=== PATIENT | female | born 1985 | race Two or more races ===

== ENCOUNTER 2022-12-24 10:42 | Emergency (ER) | payer OTHER ==
[~2022-12-24] VITALS: Ht 160 cm; Wt 56.7 kg
[~2022-12-24 10:42] MED LIST: IBUPROFEN800 MG PO; ORPH100T PO; PROTONIX40 MG PO
== END 2022-12-24 12:56 | disposition home or self-care (01) ==
LOC: ER 10:42
DX: R10.32 Left lower quadrant pain (principal)

== ENCOUNTER 2023-11-04 09:14 | Emergency (ER) | payer OTHER ==
[~2023-11-04] VITALS: Ht 152.4 cm; Wt 59.0 kg
[2023-11-04] MEDS ORDERED: 0.9 % SODIUM CHLORIDE 1,000 ML IV SCH (09:29)
[2023-11-04 10:20] LABS: HEMATOCRIT 39.4 % (36.0-45.00); HEMOGLOBIN 13.6 g/dL (12.0-15.00); MEAN CELL VOLUME 91.4 fL (80.00-100.00); MEAN CORPUSCULAR HEMOGLOBIN 31.5 pg (27.00-32.0); MEAN CORPUSCULAR HGB CONC 34.4 g/dl (32.0-36.0); PLATELET COUNT 264 K/uL (150-450); RED BLOOD COUNT 4.31 M/uL (4.00-6.00); RED CELL DISTRIBUTION WIDTH 12.5 % (11.5-14.5)
[2023-11-04 11:01] LABS: CREATININE SERUM 0.96 mg/dL (0.55-1.02); GFR 64.37; POTASSIUM 3.98 mEq/L (3.5-5.1)
[2023-11-04 11:06] LABS: URINE APPEARANCE Cloudy; URINE BILIRRUBIN Negative (NEGATIVE); URINE BLOOD Negative; URINE COLOR Yellow; URINE GLUCOSE Negative (NEGATIVE); URINE LEUKOCYTE Small; URINE NITRATE Negative; URINE PROTEIN Negative (NEGATIVE); URINE UROBILINOGEN 0.2 E.U./dl
[2023-11-04 11:10] LABS: CALCIUM 9.4 mg/dL (8.5-10.1)
[2023-11-04 11:12] LABS: URINE EPITHELIAL CELLS 51.6 uL (0.0-38.8); URINE RBC 2.8 uL (0.0-20.8); URINE WBC 134.8 uL (0.0-23.2)
[2023-11-04 11:31] LABS: URINE BACTERIA > 9821.5 uL (0.0-1933)
== END 2023-11-04 15:53 | disposition home or self-care (01) ==
LOC: ER 09:14
PROVIDERS: Emergency Medicine
DX: R10.9 Unspecified abdominal pain (principal)
CPT/HCPCS: 36415; 74177; 96365; 96366; 99284; J7030; Q9965

== ENCOUNTER 2024-01-05 05:30 | Day surgery (SDC) | payer OTHER ==
[2023-12-29 12:47] LABS: HEMATOCRIT 38.5 % (36.0-45.00); HEMOGLOBIN 13.6 g/dL (12.0-15.00); MEAN CELL VOLUME 92.4 fL (80.00-100.00); MEAN CORPUSCULAR HEMOGLOBIN 32.6 pg (27.00-32.0); MEAN CORPUSCULAR HGB CONC 35.3 g/dl (32.0-36.0); PLATELET COUNT 249 K/uL (150-450); RED BLOOD COUNT 4.17 M/uL (4.00-6.00); RED CELL DISTRIBUTION WIDTH 12.7 % (11.5-14.5)
[2023-12-29 13:08] LABS: INR 0.94; PARTIAL THROMBOPLASTIN TIME 25.9 SECONDS (22.0-34.0); PROTHROMBIN TIME 9.9 SECONDS (9.0-11.5)
[2023-12-29 13:31] LABS: ALBUMIN 4.4 gm/dL (3.4-5.0); BILIRUBIN TOTAL 0.85 mg/dL (0.3-1.2); CALCIUM 9.5 mg/dL (8.5-10.1); CREATININE SERUM 0.69 mg/dL (0.55-1.02); GFR 94.23; POTASSIUM 4.36 mEq/L (3.5-5.1); TOTAL PROTEIN 7.4 gm/dL (6.4-8.2)
[~2024-01-05] VITALS: Ht 160 cm; Wt 61.2 kg
[2024-01-05] MEDS ORDERED: BUPIVACAINE HCL/Mpf 0.5% 10ML VIAL ONE (07:27)
[2024-01-05] MEDS ORDERED: POVIDONE-IODINE 118 ML BOTT TOP ONE (07:28)
[2024-01-05] MEDS ORDERED: MORPHINE SULFATE 4 MG/ML VIAL IV PRN (12:45)
[2024-01-05] MEDS ORDERED: PROMETHAZINE HCL 50 MG/ML AMPUL IM ONE ×3 (12:45→13:53)
== END 2024-01-06 13:40 | disposition home or self-care (01) ==
LOC: CIR.AMB 05:30
PROVIDERS: ATTEND Obstetrics & Gynecology Maternal & Fetal Medicine
DX: N84.0 Polyp of corpus uteri (principal); Z64.1 Problems related to multiparity

== ENCOUNTER 2024-10-28 12:03 | Emergency (ER) | payer OTHER ==
[~2024-10-28] VITALS: Ht 160 cm; Wt 65.8 kg
[2024-10-28] MEDS ORDERED: KETOROLAC TROMETHAMINE 30 MG VIAL IM ONE (15:45)
[2024-10-28] MEDS ORDERED: KETOROLAC TROMETHAMINE 30 MG VIAL ONE (16:17)
[2024-10-28] MEDS ORDERED: NORFLEX100MG PO (16:59)
[2024-10-28] MEDS ORDERED: DICLOFENAC SODI50 MG PO (16:59)
== END 2024-10-28 17:41 ==
LOC: ER 12:04
DX: S80.11XA Contusion of right lower leg, initial encounter (principal); W01.0XXA Fall on same level from slipping, tripping and stumbling without subsequent striking against object, initial encounter; Y93.89 Activity, other specified; Y92.89 Other specified places as the place of occurrence of the external cause; S80.811A Abrasion, right lower leg, initial encounter; M54.50 Low back pain, unspecified
CPT/HCPCS: 72100; 73590; 96372; 99283; J1885

== ENCOUNTER 2024-12-26 10:53 | Emergency (ER) | payer OTHER ==
[~2024-12-26] VITALS: Ht 160 cm; Wt 61.2 kg
[~2024-12-26 10:53] MED LIST changes: +DICLOFENAC SODI50 MG PO; +NORFLEX100MG PO
[2024-12-26] MEDS ORDERED: BACLOFEN10 MG PO (13:22)
[2024-12-26] MEDS ORDERED: DICLOFENAC SODI75 MG PO (13:22)
[2024-12-26] MEDS ORDERED: ORPHENADRINE CITRATE 30 MG/ML AMPUL ONE (13:25)
[2024-12-26] MEDS ORDERED: KETOROLAC TROMETHAMINE 60 MG VIAL IM ONE ×2 (13:26→13:30)
[2024-12-26] MEDS ORDERED: DEXAMETHASONE SODIUM PHOSPHATE 4 MG/ML VIAL ONE (13:26)
[2024-12-26] MEDS ORDERED: ORPHENADRINE CITRATE 30 MG/ML AMPUL IM ONE (13:30)
[2024-12-26] MEDS ORDERED: DEXAMETHASONE SODIUM PHOSPHATE 4 MG/ML VIAL IM ONE (13:30)
== END 2024-12-26 15:11 | disposition home or self-care (01) ==
LOC: ER 10:53
DX: M54.50 Low back pain, unspecified (principal)
CPT/HCPCS: 96372; 99282; J1100; J1885; J2360